=== PATIENT | female | born 1965 | race Caucasian/White ===

== ENCOUNTER 2022-03-28 07:52 | Observation (INO) ==
[2022-03-28] MEDS ORDERED: Famotidine 20 MG TABLET PO ONE (08:00)
[2022-03-28] MEDS ORDERED: Vancomycin 1,250 MG/262.5 ML IV.SOLN IVPB ONE ×2 (08:26→20:00)
[2022-03-28] MEDS ORDERED: Ringers Solution, Lactated 1,000 ML IVC SCH (08:30)
[2022-03-28] MEDS ORDERED: *HR* FentaNYL (PF) 100 MCG/2 ML VIAL ONE ×3 (09:23→12:50)
[2022-03-28] MEDS ORDERED: Ondansetron 4 MG/2 ML VIAL ONE (09:23)
[2022-03-28] MEDS ORDERED: *HR* Propofol 200 MG/20 ML VIAL IVP ONE (09:24)
[2022-03-28] MEDS ORDERED: *HR* Midazolam HCl 2 MG/2 ML VIAL ONE (09:24)
[2022-03-28] MEDS ORDERED: Lidocaine -MPF 2% 5 ML VIAL ONE ×2 (09:26)
[2022-03-28] MEDS ORDERED: Tranexamic Acid 1,000 MG/10 ML VIAL ONE (09:36)
[2022-03-28] MEDS ORDERED: ROPIVACAINE/PF/NS 0.25% 1 EACH SYRINGE INTRAART ONE (09:40)
[2022-03-28] MEDS ORDERED: Ropivacaine/PF 0.5% 30 ML VIAL ONE (09:40)
[2022-03-28] MEDS ORDERED: TOTAL JOINT MIXTURE (100ML) INTRAART ONE (10:00)
[2022-03-28] MEDS ORDERED: Vancomycin 1,000 MG VIAL ONE (10:10)
[2022-03-28] MEDS ORDERED: EPHEDrine 50 MG/ML VIAL ONE (11:00)
[2022-03-28] MEDS ORDERED: *HR* OxyCODONE Immed Rel 5 MG TABLET PO PRN ×3 (12:10→14:12)
[2022-03-28] MEDS: *HR* HYDROmorphone PF 0.5 MG/0.5 ML SYRINGE IVP PRN ×2 (13:25→13:33)
[2022-03-28] MEDS ORDERED: MOM Conc 10 ML UD.LIQ PO PRN (14:12)
[2022-03-28] MEDS ORDERED: Naloxone 0.4 MG/ML INJ IVP PRN (14:12)
[2022-03-28] MEDS ORDERED: Ondansetron 4 MG/2 ML VIAL IVP PRN (14:12)
[2022-03-28] MEDS ORDERED: *HR* Promethazine 25 MG/ML VIAL IM PRN (14:12)
[2022-03-28] MEDS ORDERED: Sennosides 8.6 MG TABLET PO PRN (14:12)
[2022-03-28] MEDS: Ketorolac 30 MG/ML VIAL IVP SCH ×2 (17:23→23:48)
[2022-03-28] MEDS: Ascorbic Acid 500 MG TABLET PO SCH (17:28)
[2022-03-28] MEDS: *HR* OxyCODONE Immed Rel 5 MG TABLET PO PRN ×3 (17:28→23:44)
[2022-03-28] MEDS: Ringers Solution, Lactated 1,000 ML IVC SCH (19:39)
[2022-03-28] MEDS: Lithium Carbonate 300 MG CAPSULE PO SCH (23:44)
[2022-03-29] MEDS: *HR* OxyCODONE Immed Rel 5 MG TABLET PO PRN ×6 (03:06→21:33)
[2022-03-29] MEDS: Ketorolac 30 MG/ML VIAL IVP SCH ×3 (05:24→17:34)
[2022-03-29 06:19] LABS: Basophils # 0.1 K/mcL (0.0-0.2); Basophils % 0.2 %; Eosinophils % 0.2 %; Hematocrit 38.9 % (35.3-44.9); Hemoglobin 12.7 g/dL (11.5-15.4); Immature Granulocytes % 0.6 % (0-4); Lymphocytes # 2.9 K/mcL (0.6-4.6); Lymphocytes % 13.6 %; Mean Corpuscular HGB Conc 32.6 g/dL (31.6-35.5); Mean Corpuscular Hemoglobin 31.6 pg (28.0-33.3); Mean Corpuscular Volume 96.8 fL (83.0-100.0); Mean Platelet Volume 10.3 fL (9.4-12.4); Monocytes # 1.8 K/mcL (0.0-1.3); Monocytes % 8.5 %; Neutrophils # 16.3 K/mcL (1.6-8.9); Platelet Count 390 K/mcL (140-400); Red Blood Count 4.02 M/mcL (3.82-4.97); Red Cell Distribution Width 15.9 % (11.5-14.5); Segmented Neutrophils % 76.9 %; White Blood Count 21.2 K/mcL (4.3-11.1)
[2022-03-29 06:39] LABS: BUN/Creatinine Ratio 15 (6-26); Blood Urea Nitrogen 12 mg/dL (6-20); Calcium 8.8 mg/dL (8.6-10.3); Carbon Dioxide 27 mEq/L (23-29); Chloride 108 mEq/L (98-107); Glucose 107 mg/dL (70-105); Osmolality,Calculated 288 (280-300); Potassium 3.8 mEq/L (3.5-5.1); Sodium 139 mEq/L (136-145); eGFR For African Americans > 60 (> 60); eGFR For Non-African Americans > 60 (> 60)
[2022-03-29] MEDS: Lithium Carbonate 300 MG CAPSULE PO SCH ×2 (08:45→17:33)
[2022-03-29] MEDS: Multivit/Ca/Min/Fe/FA 1 TAB TABLET PO SCH (08:46)
[2022-03-29] MEDS: Ascorbic Acid 500 MG TABLET PO SCH ×2 (08:46→17:33)
[2022-03-29] MEDS ORDERED: Ipratropium 1 PUFF INHALER IH PRN (13:06)
[2022-03-29] MEDS ORDERED: Lithium Carbonate 300 MG CAPSULE PO SCH (15:00)
[2022-03-29] MEDS: LAMIVUDI PO SCH (17:34)
[2022-03-29] MEDS: DOLUTEGRAVIR PO SCH (17:34)
[2022-03-29] MEDS: ABACAVIR PO SCH (17:34)
[2022-03-29] MEDS: Aspirin Enteric Coated 81 MG Tablet PO SCH ×2 (17:35→21:33)
[2022-03-29] MEDS: ARIPiprazole 10 MG TABLET PO SCH (17:35)
[2022-03-30] MEDS: Lithium Carbonate 300 MG CAPSULE PO SCH ×5 (01:05→23:28)
[2022-03-30] MEDS: Ketorolac 30 MG/ML VIAL IVP SCH ×4 (01:05→17:51)
[2022-03-30] MEDS: *HR* OxyCODONE Immed Rel 5 MG TABLET PO PRN ×4 (03:13→19:50)
[2022-03-30 04:56] LABS: Basophils # 0.1 K/mcL (0.0-0.2); Basophils % 0.4 %; Eosinophils # 0.5 K/mcL (0.0-0.6); Eosinophils % 2.9 %; Hematocrit 35.3 % (35.3-44.9); Hemoglobin 11.5 g/dL (11.5-15.4); Immature Granulocytes % 0.5 % (0-4); Lymphocytes # 4.2 K/mcL (0.6-4.6); Lymphocytes % 23.9 %; Mean Corpuscular HGB Conc 32.6 g/dL (31.6-35.5); Mean Corpuscular Hemoglobin 31.5 pg (28.0-33.3); Mean Corpuscular Volume 96.7 fL (83.0-100.0); Mean Platelet Volume 9.8 fL (9.4-12.4); Monocytes # 1.7 K/mcL (0.0-1.3); Neutrophils # 10.9 K/mcL (1.6-8.9); Platelet Count 359 K/mcL (140-400); Red Blood Count 3.65 M/mcL (3.82-4.97); Red Cell Distribution Width 16.1 % (11.5-14.5); Segmented Neutrophils % 62.3 %; White Blood Count 17.4 K/mcL (4.3-11.1)
[2022-03-30 05:07] LABS: BUN/Creatinine Ratio 19 (6-26); Blood Urea Nitrogen 15 mg/dL (6-20); Calcium 8.5 mg/dL (8.6-10.3); Carbon Dioxide 24 mEq/L (23-29); Chloride 109 mEq/L (98-107); Glucose 97 mg/dL (70-105); Osmolality,Calculated 287 (280-300); Potassium 3.9 mEq/L (3.5-5.1); Sodium 138 mEq/L (136-145); eGFR For African Americans > 60 (> 60); eGFR For Non-African Americans > 60 (> 60)
[2022-03-30] MEDS ORDERED: BuPROPion XL (24 HR) 150 MG TABLET PO SCH (09:00)
[2022-03-30] MEDS: Ascorbic Acid 500 MG TABLET PO SCH ×2 (09:11→15:29)
[2022-03-30] MEDS: Aspirin Enteric Coated 81 MG Tablet PO SCH ×2 (09:12→19:24)
[2022-03-30] MEDS: ARIPiprazole 10 MG TABLET PO SCH (09:12)
[2022-03-30] MEDS: Loratadine 10 MG TABLET PO SCH (09:12)
[2022-03-30] MEDS: Multivit/Ca/Min/Fe/FA 1 TAB TABLET PO SCH (09:13)
[2022-03-30] MEDS: DOLUTEGRAVIR PO SCH (09:13)
[2022-03-30] MEDS: BuPROPion XL (24 HR) 150 MG TABLET PO SCH (09:13)
[2022-03-30] MEDS: ABACAVIR PO SCH (09:13)
[2022-03-30] MEDS: LAMIVUDI PO SCH (09:13)
[2022-03-31] MEDS: Ketorolac 30 MG/ML VIAL IVP SCH ×4 (00:25→17:15)
[2022-03-31] MEDS: *HR* OxyCODONE Immed Rel 5 MG TABLET PO PRN ×5 (00:26→22:01)
[2022-03-31] MEDS: Lithium Carbonate 300 MG CAPSULE PO SCH ×2 (08:08→17:14)
[2022-03-31] MEDS: ARIPiprazole 10 MG TABLET PO SCH (08:08)
[2022-03-31] MEDS: Ascorbic Acid 500 MG TABLET PO SCH ×2 (08:08→17:14)
[2022-03-31] MEDS: Aspirin Enteric Coated 81 MG Tablet PO SCH ×2 (08:08→20:06)
[2022-03-31] MEDS: Loratadine 10 MG TABLET PO SCH (08:08)
[2022-03-31] MEDS: Multivit/Ca/Min/Fe/FA 1 TAB TABLET PO SCH (08:08)
[2022-03-31] MEDS: BuPROPion XL (24 HR) 150 MG TABLET PO SCH (08:08)
[2022-03-31] MEDS: LAMIVUDI PO SCH (08:13)
[2022-03-31] MEDS: DOLUTEGRAVIR PO SCH (08:13)
[2022-03-31] MEDS: ABACAVIR PO SCH (08:13)
[2022-04-01] MEDS: Lithium Carbonate 300 MG CAPSULE PO SCH ×4 (01:02→23:37)
[2022-04-01] MEDS: *HR* OxyCODONE Immed Rel 5 MG TABLET PO PRN ×5 (03:02→21:35)
[2022-04-01] MEDS: ARIPiprazole 10 MG TABLET PO SCH (11:37)
[2022-04-01] MEDS: Multivit/Ca/Min/Fe/FA 1 TAB TABLET PO SCH (11:38)
[2022-04-01] MEDS: BuPROPion XL (24 HR) 150 MG TABLET PO SCH (11:38)
[2022-04-01] MEDS: Ascorbic Acid 500 MG TABLET PO SCH ×2 (11:38→17:19)
[2022-04-01] MEDS: Loratadine 10 MG TABLET PO SCH (11:38)
[2022-04-01] MEDS: Aspirin Enteric Coated 81 MG Tablet PO SCH ×2 (11:39→21:05)
[2022-04-01] MEDS: ABACAVIR PO SCH (11:56)
[2022-04-01] MEDS: DOLUTEGRAVIR PO SCH (11:56)
[2022-04-01] MEDS: LAMIVUDI PO SCH (11:56)
[2022-04-01 12:02] LABS: Basophils # 0.1 K/mcL (0.0-0.2); Basophils % 0.3 %; Eosinophils # 0.3 K/mcL (0.0-0.6); Eosinophils % 1.4 %; Hematocrit 37.6 % (35.3-44.9); Hemoglobin 12.4 g/dL (11.5-15.4); Immature Granulocytes % 0.8 % (0-4); Lymphocytes # 2.7 K/mcL (0.6-4.6); Lymphocytes % 10.8 %; Mean Corpuscular Hemoglobin 31.4 pg (28.0-33.3); Mean Corpuscular Volume 95.2 fL (83.0-100.0); Mean Platelet Volume 9.7 fL (9.4-12.4); Monocytes # 2.2 K/mcL (0.0-1.3); Neutrophils # 19.4 K/mcL (1.6-8.9); Platelet Count 378 K/mcL (140-400); Red Blood Count 3.95 M/mcL (3.82-4.97); Red Cell Distribution Width 15.3 % (11.5-14.5); Segmented Neutrophils % 77.7 %
[2022-04-01 12:29] LABS: BUN/Creatinine Ratio 13 (6-26); Blood Urea Nitrogen 9 mg/dL (6-20); Calcium 8.7 mg/dL (8.6-10.3); Carbon Dioxide 29 mEq/L (23-29); Chloride 101 mEq/L (98-107); Glucose 112 mg/dL (70-105); Osmolality,Calculated 277 (280-300); Sodium 134 mEq/L (136-145); eGFR For African Americans > 60 (> 60); eGFR For Non-African Americans > 60 (> 60)
[2022-04-01] MEDS: Ketorolac 30 MG/ML VIAL IVP SCH ×4 (13:16→23:49)
[2022-04-01] MEDS: Ringers Solution, Lactated 1,000 ML IVC SCH ×5 (13:16→23:39)
[2022-04-01] MEDS ORDERED: cefTRIAXone 1,000 MG in 0.9 % Sodium Chloride 10 ML IVP SCH (14:00)
[2022-04-01 14:36] LABS: Bilirubin,Urine Negative (Negative); Blood,Urine Negative (Negative); Clarity,Urine Clear (Clear); Color,Urine Yellow (Yellow); Glucose,Urine (UA) Normal (Normal); Ketones,Urine Trace mg/dL (Negative); Leukocyte Esterase,Urine Trace (Negative); Nitrite,Urine Negative (Negative); PH,Urine 6.5 pH Units (5.0-8.0); Protein,Urine 30 mg/dL (Neg-Trace); RBC,Urine 0-3 per hpf (0-3); Specific Gravity,Urine 1.023 (1.010-1.025); Squamous Epithelial Cell,Urine Few per hpf (None-Few); WBC,Urine 0-3 per hpf (0-3)
[2022-04-02] MEDS: Ringers Solution, Lactated 1,000 ML IVC SCH ×2 (03:38→04:24)
[2022-04-02] MEDS: Ketorolac 30 MG/ML VIAL IVP SCH ×2 (03:42→11:58)
[2022-04-02] MEDS: *HR* OxyCODONE Immed Rel 5 MG TABLET PO PRN ×3 (05:10→15:50)
[2022-04-02 07:22] LABS: Basophils # 0.1 K/mcL (0.0-0.2); Basophils % 0.3 %; Eosinophils % 4.3 %; Hematocrit 34.7 % (35.3-44.9); Hemoglobin 11.5 g/dL (11.5-15.4); Immature Granulocytes % 0.7 % (0-4); Lymphocytes # 3.7 K/mcL (0.6-4.6); Lymphocytes % 16.5 %; Mean Corpuscular HGB Conc 33.1 g/dL (31.6-35.5); Mean Corpuscular Hemoglobin 31.8 pg (28.0-33.3); Mean Corpuscular Volume 95.9 fL (83.0-100.0); Mean Platelet Volume 9.7 fL (9.4-12.4); Monocytes # 2.3 K/mcL (0.0-1.3); Monocytes % 10.2 %; Neutrophils # 15.2 K/mcL (1.6-8.9); Platelet Count 378 K/mcL (140-400); Red Blood Count 3.62 M/mcL (3.82-4.97); Red Cell Distribution Width 15.4 % (11.5-14.5); White Blood Count 22.4 K/mcL (4.3-11.1)
[2022-04-02 07:33] LABS: BUN/Creatinine Ratio 18 (6-26); Blood Urea Nitrogen 15 mg/dL (6-20); Calcium 8.5 mg/dL (8.6-10.3); Carbon Dioxide 29 mEq/L (23-29); Chloride 103 mEq/L (98-107); Glucose 106 mg/dL (70-105); Magnesium 2.2 mg/dL (1.6-2.6); Osmolality,Calculated 283 (280-300); Phosphorous 3.4 mg/dL (2.7-4.5); Potassium 3.6 mEq/L (3.5-5.1); Sodium 136 mEq/L (136-145); eGFR For African Americans > 60 (> 60); eGFR For Non-African Americans > 60 (> 60)
[2022-04-02] MEDS: Multivit/Ca/Min/Fe/FA 1 TAB TABLET PO SCH (08:51)
[2022-04-02] MEDS: Ascorbic Acid 500 MG TABLET PO SCH (08:51)
[2022-04-02] MEDS: Lithium Carbonate 300 MG CAPSULE PO SCH ×2 (08:51→15:50)
[2022-04-02] MEDS: Aspirin Enteric Coated 81 MG Tablet PO SCH (08:51)
[2022-04-02] MEDS: ARIPiprazole 10 MG TABLET PO SCH (08:52)
[2022-04-02] MEDS: BuPROPion XL (24 HR) 150 MG TABLET PO SCH (08:52)
[2022-04-02] MEDS: Loratadine 10 MG TABLET PO SCH (08:52)
[2022-04-02 10:59] VITALS: TEMP 97.9
[2022-04-02 13:46] LABS: Influenza A PCR Negative (Negative); Influenza B PCR Negative (Negative); Resp. Syncytial Virus PCR Negative (Negative)
[2022-04-02 13:48] LABS: SARS-CoV-2 by PCR (In House) Negative (Negative)
[2022-04-02 15:14] VITALS: BP 97/62; PULSE 79; O2SAT 90
== END 2022-04-02 16:43 ==
LOC: SDCAOSI 07:52 → 4WAOSI 07:52
PROVIDERS: ADMIT Orthopaedic Surgery; ATTEND Orthopaedic Surgery